=== PATIENT | male | born 1970 | race Hispanic/Latino ===

== ENCOUNTER 2016-07-29 10:00 | Emergency (ER) | payer OTHER ==
--- NOTE | 2016-07-29 10:54 | XRay Report ---
RIGHT ANKLE, 3 views: History: Right ankle injury. Findings: Mild soft tissue swelling is identified. No acute osseous abnormality or joint pathology is identified. The fifth metatarsal base is intact. Impression: Soft tissue swelling. No acute osseous injury.
[2016-07-29 11:14] VITALS: BP 138/89
--- NOTE | 2016-07-29 11:23 | Emergency Department Report ---
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 Patient was evaluated by cc in [place] responded to the [facility] presyncopal and the patient right ankle was wrapped with Jj wrap. Patient reports the pain is 6 out of 10. He reports that his ankle inversion. MD Complaint: ankle injury -: hour(s) (1) Injury: Ankle: Right Type of Injury: inversion Place: work Severity: moderate Severity scale (0 -10): 6 Improves With: nothing, immobilization Context: running Associated Symptoms: able to partially bear weight - Related Data Home Medications Medication Instructions Recorded Confirmed Last Taken Loratadine [Claritin] 1 tab PO DAILY 07/29/16 07/29/16 07/28/16 Previous Rx's Medication Instructions Recorded Last Taken Type Ibuprofen [Motrin 800 MG tab] 800 mg PO Q8HR #30 tablet 07/29/16 Unknown Rx Allergies Allergy/AdvReac Type Severity Reaction Status Date / Time No Known Allergies Allergy Unverified 07/29/16 10:07 ED Review of Systems ROS: Stated complaint: RT ANKLE SWOLLEN/POSS SPRAIN Other details as noted in HPI ED Past Medical Hx - Past Medical History Previous Medical History?: No - Surgical History Past Surgical History?: Yes Additional Surgical History: [place] tooth removed - Social History Smoking Status: Never Smoker Substance Use Type: Prescribed - Medications Home Medications: Home Medications Medication Instructions Recorded Confirmed Last Taken Type Ibuprofen [Motrin 800 MG tab] 800 mg PO Q8HR #30 tablet 07/29/16 Unknown Rx Loratadine [Claritin] 1 tab PO DAILY 07/29/16 07/29/16 07/28/16 History ED Physical Exam - General Limitations: No Limitations General appearance: alert, in no apparent distress - Head Head exam: Present: atraumatic, normocephalic - Eye Eye exam: Present: normal appearance - ENT ENT exam: Present: normal exam, mucous membranes moist - Neck Neck exam: Present: normal inspection - Extremities Exam Extremities exam: Present: pedal edema (1+) - Expanded Lower Extremity Exam Right Ankle exam: Present: normal inspection, full ROM, swelling (lateral malleolus). Absent: abrasion, laceration, deformity, crepidus, anterior draw sign Foot/Toe exam: Present: normal inspection, full ROM. Absent: tenderness, swelling, abrasion Neuro vascular tendon exam: Present: no vascular compromise. Absent: pulse deficit ED Course Vital Signs 07/29/16 07/29/16 10:07 11:13 Temperature 97.9 F Pulse Rate 80 Respiratory 16 Rate Blood Pressure 150/101 Blood Pressure 138/89 [Right] O2 Sat by Pulse 100 Oximetry ED Lower Extremity MDM - Medical Decision Making Patient's been evaluated by this provider fast track. Discussed the patient that we would do an x-ray which was done prior to patient, to the exam room which showed negativity of any fractures. Discussed the patient would discharge him on ibuprofen we will give him some Tylenol for pain at this point and have him follow-up with his primary care provider. Patient verbalized understanding. Critical care attestation.: If time is entered above; I have spent that time in minutes in the direct care of this critically ill patient, excluding procedure time. ED Disposition Clinical Impression: Right ankle sprain Qualifiers: Encounter type: initial encounter Involved ligament of ankle: tibiofibular ligament Qualified Code(s): S93.431A - Sprain of tibiofibular ligament of right ankle, initial encounter Disposition: DISCHARGED TO HOME OR SELFCARE Is pt being admited?: No Does the pt Need Aspirin: No Condition: Stable Instructions: Ankle Stirrup Splint (ED), Ankle Sprain (ED), Ankle Exercises ( GEN), RICE Therapy (ED) Additional Instructions: Please take Motrin for pain and swelling. Please apply ice for 20 minutes every 2 hours. Follow the rice therapy that will be listed in the paperwork. Follow-up to primary care provider. Prescriptions: Ibuprofen [Motrin 800 MG tab] 800 mg PO Q8HR #30 tablet Referrals: PRIMARY CARE, [Primary Care Provider] - 3-5 Days Forms: Work/School Release Form(ED)
[2016-07-29] MEDS ORDERED: MOTRIN PO ONE (11:37)
== END 2016-07-29 11:56 | disposition home or self-care (01) ==
LOC: ED 10:00
DX: S93.431A Sprain of tibiofibular ligament of right ankle, initial encounter (principal); X58.XXXA Exposure to other specified factors, initial encounter; Y93.02 Activity, running; Y99.8 Other external cause status; Y92.89 Other specified places as the place of occurrence of the external cause